=== PATIENT | female | born 1930 | race Caucasian/White ===

== ENCOUNTER 2018-06-06 15:04 | Inpatient (IN) ==
[2018-06-06 17:31] VITALS: BMI 41.1
--- NOTE | 2018-06-06 17:36 | DR.H&P ---
H&P - History & Physical for Day of: H&P Date: 06/06/18 - Chief Complaint Chief Complaint: Abnormal labs - History of Present Illness History of Present Illness: the patient is an 87-year-old female resident of [facility] who has abnormal lab results. The patient was noted to be hypotensive on 06/05/2018 with blood pressure 91/60. patient was given a IV fluid bolus as well as labs drawn. Sodium 125, potassium 6.2, CO2 11, calcium 7 .7, BUN 102, creatinine 3.8, GFR 11.9. Urine 4+ bacteria, negative nitrites. Patient is active and utilizes wheelchair. Patient - Past Medical History Past Medical History: Anemia, Dyslipidemia, GERD, Hypertension, Hypothyroidism Additional Medical History: A FIb, Insomnia, Bullous Pemphigoid - Past Surgical History Surgical History: Unknown - Social History Does patient currently use any type of tobacco product: No Have you used tobacco products in the last 12 months: No Type of Tobacco Use: None Does any household member use tobacco: No Alcohol Use: None Drug Use: None - Medications Home Medications: morphine Adverse Reaction (Verified 06/06/18 17:10) warfarin Adverse Reaction (Verified 06/06/18 17:10) - Review of Systems Constitutional: No Symptoms Reported Eyes: No Symptoms Reported ENT: No Symptoms Reported Respiratory: No Symptoms Reported Cardiovascular: No Symptoms Reported Gastrointestinal: No Symptoms Reported Genitourinary: No Symptoms Reported Musculoskeletal: No Symptoms Reported Skin: No Symptoms Reported Neurological: No Symptoms Reported Oriented: Normal Eyes: Normal Ear: Normal Nose: Normal Throat: Normal Respiratory: Clear Throughout Cardiovascular: Normal : Normal Auscultation: Bowel Sounds: Normal Palpation: Normal Tenderness: Normal Skin: Decreased Turgur Musculoskeletal: Back:Lumbar Psychiatric: Normal Mood Description: Calm Affect: Normal Speech Pattern: Clear - Assessment/Plan (1) Acute kidney failure Status: Acute Plan: LABS, IV HYDRATION, SEPSIS WORK UP (2) Dehydration Status: Acute Plan: LABS, IV HYDRATION, SEPSIS WORK UP (3) Hyperkalemia Status: Acute Plan: MONITOR LABS, IV HYDRATION (4) Hyponatremia Status: Acute Plan: MONITOR LABS, IV HYDRATION, SEPSIS WORK UP - Allergies Allergies/Adverse Reactions: Allergies Allergy/AdvReac Type Severity Reaction Status Date / Time morphine AdvReac Verified 06/06/18 17:10 warfarin AdvReac Verified 06/06/18 17:10
--- NOTE | 2018-06-06 17:49 | RAD ---
HISTORY: Acute renal failure Study: Single view of the chest. Comparison: None. Findings: Cardiomegaly. No focal consolidations, pleural effusions or pneumothorax. Osseous structures demonstrate no acute abnormality. Bilateral hyper expansion with coarsening of interstitial markings. IMPRESSION: 1. No acute cardiopulmonary process. 2. Findings of COPD. Cardiomegaly. Reported By:
[2018-06-06 18:03] LABS: ABG BASE EXCESS -19.5 mmol/L (-2.0-2.0)
[2018-06-06 18:05] LABS: ABG ALLEN TEST POS; ABG HCO3 8.6 mmol/L (22-26)
[2018-06-06 18:16] LABS: BASOPHILS % (AUTO) 0.4 % (0.2-1.0); EOSINOPHILS # (AUTO) 0.1 x10^3/uL (0.0-0.2); EOSINOPHILS % (AUTO) 0.6 % (0.9-2.9); HEMATOCRIT 33.9 % (36.0-47.0); HEMOGLOBIN 10.8 g/dL (12.0-16.0); LYMPHOCYTES # (AUTO) 0.7 X10^3/uL (1.3-2.9); LYMPHOCYTES % (AUTO) 6.7 % (21.0-51.0); MEAN CORPUSCULAR HEMOGLOBIN 28.1 pg (27.0-34.0); MEAN CORPUSCULAR HGB CONC 31.9 g/dL (33.0-35.0); MEAN CORPUSCULAR VOLUME 87.9 fL (80.0-100.0); MEAN PLATELET VOLUME 8.5 fL (7.4-11.0); MONOCYTES # (AUTO) 0.4 x10^3/uL (0.3-0.8); MONOCYTES % (AUTO) 3.7 % (0.0-13.0); NEUTROPHILS # (AUTO) 8.9 x10^3/uL (2.2-4.8); NEUTROPHILS % (AUTO) 88.6 % (42.0-75.0); PLATELET COUNT 272 X10^3/uL (150.0-450.0); RED BLOOD COUNT 3.85 X10^6/uL (3.5-5.4)
[2018-06-06 18:24] LABS: ALBUMIN 2.8 g/dL (3.4-5.0); CALCIUM 8.1 mg/dL (8.5-10.1); COR CA(FOR HYPOALB) 9.1 mg/dL (8.5-10.1); CREATININE 3.95 mg/dL (0.55-1.02); TOTAL PROTEIN 6.6 g/dL (6.4-8.2)
[2018-06-06 18:29] LABS: CARBON DIOXIDE 10.9 mmol/L (21-32)
[2018-06-06 18:38] LABS: BILIRUBIN,URINE NEGATIVE (NEGATIVE); BLOOD/HEMOGLOBIN,URINE 5+ (NEGATIVE); GLUCOSE, URINE NEGATIVE (NEGATIVE); KETONES,URINE NEGATIVE (NEGATIVE); LEUKOCYTE ESTERASE ,URINE 3+ (NEGATIVE); NITRITES,URINE NEGATIVE (NEGATIVE); PROTEIN,URINE 3+ (NEGATIVE); UROBILINOGEN,URINE NORMAL (NORMAL)
[2018-06-06 18:43] LABS: APPEARANCE,URINE CLOUDY (CLEAR); COLOR,URINE DARK YELLOW (YELLOW); RBC,URINE TNTC /HPF (NONE SEEN); SQUAMOUS EPITHELIAL CELL,UR RARE /HPF (NEGATIVE)
[2018-06-06 18:44] LABS: AMORPHOUS SEDIMENT,UR 2+ /HPF (NEGATIVE); BACTERIA,URINE 3+ /HPF (NEGATIVE)
[2018-06-06] MEDS ORDERED: ROCEPHIN VIAL 2 GRAMS IVP ONE (18:52)
[2018-06-06] MEDS ORDERED: TOBRAMYCIN SULFATE 80 MG in NS 100 ML IV 100 ML IV ONE (18:52)
[2018-06-06] MEDS ORDERED: NS 1000 ML 1,000 ML IV ONE ×2 (18:52→19:03)
[2018-06-06 18:54] LABS: CKMB % 5.1 % (<4); TROPONIN I 0.02 ng/mL (0-1.5)
[2018-06-06 18:57] LABS: CREATINE KINASE MB 5.2 ng/mL (0-4.0)
[2018-06-06] MEDS ORDERED: REFLEX: PROVENTIL NEB & PulmiCORT NEB~ NEB SCH (19:00)
[2018-06-06] MEDS ORDERED: HumuLIN R SUBCUT PRN (19:00)
[2018-06-06 19:36] LABS: SERUM ACETONE NEGATIVE (NEGATIVE)
[2018-06-06 19:41] LABS: LACTIC ACID 1.7 mmol/L (0.4-2.0)
[2018-06-06] MEDS: BROVANA IN SCH (20:30)
[2018-06-06] MEDS: PULMICORT NEB TX 0.5 MG NEB SCH (20:31)
[2018-06-06] MEDS: SNACK - Diabetic Appropriate PO SCH (20:57)
[2018-06-06] MEDS ORDERED: ALPHAGAN 0.2% OPHTH SOLN AFFEYE SCH (21:00)
[2018-06-06] MEDS ORDERED: ACCUNEB 1.25 MG NEBULE NEB SCH (21:00)
[2018-06-06] MEDS ORDERED: COLACE CAP 100 MG PO SCH (21:00)
[2018-06-06] MEDS: KAYEXALATE SUSP PO SCH (21:12)
[2018-06-06] MEDS: MIRALAX POWDER (1 DOSE 17 G) PO SCH (21:12)
[2018-06-06] MEDS: MILK OF MAGNESIA PO SCH (21:12)
[2018-06-06] MEDS: COLACE CAP 100 MG PO SCH (21:12)
[2018-06-06] MEDS: REQUIP PO SCH (21:13)
[2018-06-06] MEDS: ELIQUIS PO SCH (21:13)
[2018-06-06] MEDS: PATIENT'S HOME MEDICATION PO SCH (21:13)
[2018-06-06] MEDS: NORCO 5/325 MG TAB PO PRN (21:14)
[2018-06-06] MEDS: ARTIFICIAL TEARS DROPS AFFEYE SCH (21:58)
[2018-06-06] MEDS: ALPHAGAN 0.2% OPHTH SOLN EACHEYE SCH (21:58)
[2018-06-06] MEDS ORDERED: ALPHAGAN P 0.15% OPHTH SOLN EACHEYE SCH (22:00)
[2018-06-06] MEDS ORDERED: BUTT CREAM (COMPOUND) TOP PRN (22:11)
[2018-06-06] MEDS ORDERED: BUTT CREAM (COMPOUND) ONE (22:12)
[2018-06-06] MEDS ORDERED: D50W ABBOJECT SYR IV ONE (22:16)
[2018-06-06] MEDS ORDERED: HumuLIN R SUBCUT ONE (22:18)
[2018-06-06] MEDS ORDERED: D50W ABBOJECT SYR ONE (22:20)
[2018-06-06] MEDS ORDERED: HumuLIN R IV ONE (22:24)
[2018-06-06 23:40] LABS: CKMB % 4.8 % (<4); TROPONIN I 0.02 ng/mL (0-1.5)
[2018-06-06 23:51] LABS: CREATINE KINASE MB 4.5 ng/mL (0-4.0)
[2018-06-07] MEDS: DUONEB 0.5 MG/3 MG NEB SCH ×4 (00:45→17:11)
[2018-06-07] MEDS: NS 1000 ML 1,000 ML IV SCH ×2 (02:42→18:11)
[2018-06-07] MEDS: KAYEXALATE SUSP PO SCH ×3 (02:43→18:42)
[2018-06-07] MEDS: ALPHAGAN 0.2% OPHTH SOLN EACHEYE SCH ×3 (05:54→21:17)
--- NOTE | 2018-06-07 06:41 | RAD ---
HISTORY: Acute renal failure Study: Chest AP portable Comparison: 06/06/2018 Findings: The heart is enlarged. No congestive heart failure is noted. The aorta is calcified. The lungs are free of acute alveolar infiltrates. Mild interstitial lung changes are present, stable. No pleural effusions are identified. The bony thorax is unremarkable with the exception of bilateral chronic rotator cuff disease and bilateral glenohumeral joint degenerative joint disease. IMPRESSION: Moderate cardiomegaly without congestive heart failure No acute infiltrates Mild stable interstitial lung changes Reported By:
[2018-06-07 06:55] LABS: BASOPHILS % (AUTO) 0.5 % (0.2-1.0); EOSINOPHILS # (AUTO) 0.2 x10^3/uL (0.0-0.2); EOSINOPHILS % (AUTO) 2.4 % (0.9-2.9); HEMATOCRIT 31.3 % (36.0-47.0); HEMOGLOBIN 10.1 g/dL (12.0-16.0); LYMPHOCYTES # (AUTO) 1.2 X10^3/uL (1.3-2.9); LYMPHOCYTES % (AUTO) 14.6 % (21.0-51.0); MEAN CORPUSCULAR HEMOGLOBIN 28.1 pg (27.0-34.0); MEAN CORPUSCULAR HGB CONC 32.1 g/dL (33.0-35.0); MEAN CORPUSCULAR VOLUME 87.4 fL (80.0-100.0); MEAN PLATELET VOLUME 8.7 fL (7.4-11.0); MONOCYTES # (AUTO) 0.7 x10^3/uL (0.3-0.8); NEUTROPHILS # (AUTO) 6.2 x10^3/uL (2.2-4.8); NEUTROPHILS % (AUTO) 74.5 % (42.0-75.0); PLATELET COUNT 268 X10^3/uL (150.0-450.0); RED BLOOD COUNT 3.58 X10^6/uL (3.5-5.4); RED CELL DISTRIBUTION WIDTH 14.7 % (11.6-16.5); WHITE BLOOD COUNT 8.3 X10^3/uL (3.6-10.0)
[2018-06-07 07:33] LABS: ALANINE AMINOTRANSFERASE 27 Units/L (12-78); ALBUMIN 2.6 g/dL (3.4-5.0); ALKALINE PHOSPHATASE 120 Units/L (46-116); ASPARTATE AMINO TRANSFERASE 13 Units/L (15-37); BLOOD UREA NITROGEN 114 mg/dL (7-18); CALCIUM 7.7 mg/dL (8.5-10.1); CHLORIDE 97 mmol/L (98-107); CKMB % 5.3 % (<4); COR CA(FOR HYPOALB) 8.8 mg/dL (8.5-10.1); CREATINE KINASE 97 Units/L (26-192); CREATININE 3.76 mg/dL (0.55-1.02); SODIUM 129 mmol/L (136-145); TOTAL PROTEIN 6.2 g/dL (6.4-8.2); TROPONIN I 0.02 ng/mL (0-1.5); eGFR NON BLACK RACES 12 (>60)
[2018-06-07 07:37] LABS: CARBON DIOXIDE 11.5 mmol/L (21-32)
[2018-06-07 07:38] LABS: CREATINE KINASE MB 5.1 ng/mL (0-4.0)
[2018-06-07] MEDS ORDERED: LANTISEPTIC ONE (09:20)
[2018-06-07] MEDS ORDERED: ALLEGRA ONE (09:48)
[2018-06-07] MEDS: ALLEGRA PO SCH (10:15)
[2018-06-07] MEDS: ARTIFICIAL TEARS DROPS AFFEYE SCH ×4 (10:15→20:07)
[2018-06-07] MEDS: COLACE CAP 100 MG PO SCH ×2 (10:16→20:03)
[2018-06-07] MEDS: ELIQUIS PO SCH ×2 (10:17→20:07)
[2018-06-07] MEDS: PATIENT'S HOME MEDICATION PO SCH ×2 (10:18→20:07)
[2018-06-07] MEDS: MILK OF MAGNESIA PO SCH ×2 (10:18→20:03)
[2018-06-07] MEDS: NORCO 5/325 MG TAB PO PRN ×2 (10:19→18:11)
[2018-06-07] MEDS: ROCEPHIN VIAL 1 GRAM IVP SCH (10:19)
[2018-06-07] MEDS: PROTONIX INJ 40 MG VIAL IVP SCH (10:19)
[2018-06-07] MEDS: PREDNISONE TAB 5 MG PO SCH (10:19)
[2018-06-07] MEDS: PULMICORT NEB TX 0.5 MG NEB SCH ×2 (12:00→20:05)
[2018-06-07] MEDS: BROVANA IN SCH ×2 (12:00→20:05)
[2018-06-07] MEDS ORDERED: NS 1/2 1000 ML IV 1,000 ML IV ONE (12:36)
[2018-06-07] MEDS ORDERED: D50W ABBOJECT SYR IV ONE (12:58)
[2018-06-07] MEDS ORDERED: D50W ABBOJECT SYR ONE (12:59)
--- NOTE | 2018-06-07 13:25 | PCM.PROG ---
Progress Note - Progress Note for Day of Date of Exam: 06/07/18 - Subjective Subjective: 87 WF DIRECT ADMIT FROM [facility] WITH ACUTE RENAL FAILURE WITH UTI AND HYPERKALEMIA. PT IS CURRENTLY ON GENTLE IV HYDRATION WITH KAYEXALATE FOR HYPERKALEMIA AND CONTINUOUS CARDIAC MONITORING. PT IS AWAKE AND RESPONSIVE THIS AM, DENIES PAIN. PT BUN CREAT K+ THIS AM. - Past Medical Family Social History Past Med/Fam/Surg Hx: No changes since H&P Allergies: Allergies morphine Adverse Reaction (Verified 06/06/18 17:10) warfarin Adverse Reaction (Verified 06/06/18 17:10) - Review of Systems ROS: No change since H&P - Vital Signs and I&O's Vital Signs: Temperature 97.8 F Pulse Rate [Apical] 55 Pulse Rate 87 Respiratory Rate 13 Blood Pressure [Right Arm] 88/40 Blood Pressure 101/56 O2 Sat by Pulse Oximetry 100 Intake and Output: Intake & Output 06/05/18 06/06/18 06/07/18 06/08/18 11:59 11:59 11:59 11:59 Intake Total 3042 / 3042 Output Total 350 / 350 Balance 2692 / 2692 - Physical Exam Oriented: Normal Eyes: Normal Ear: Normal Nose: Normal Throat: Normal Respiratory: Diminished Cardiovascular: Normal : Normal Auscultation: Bowel Sounds: Normal Tenderness: Normal Skin: Decreased Turgur Musculoskeletal: Back:Lumbar Psychiatric: Normal Mood Description: Calm Affect: Normal Speech Pattern: Clear - Laboratory and Diagnostics Result Diagrams: 06/07/18 06:35 06/07/18 06:35 Labs: 06/06/18 18:25 Urine,Catheterized Urine Culture - Preliminary Laboratory WBC 8.3 X10^3/uL (3.6-10.0) 06/07/18 06:35 RBC 3.58 X10^6/uL (3.5-5.4) 06/07/18 06:35 Hgb 10.1 g/dL (12.0-16.0) L 06/07/18 06:35 Hct 31.3 % (36.0-47.0) L 06/07/18 06:35 MCV 87.4 fL (80.0-100.0) 06/07/18 06:35 MCH 28.1 pg (27.0-34.0) 06/07/18 06:35 MCHC 32.1 g/dL (33.0-35.0) L 06/07/18 06:35 RDW 14.7 % (11.6-16.5) 06/07/18 06:35 Plt Count 268 X10^3/uL (150.0-450.0) 06/07/18 06:35 MPV 8.7 fL (7.4-11.0) 06/07/18 06:35 Neut % (Auto) 74.5 % (42.0-75.0) 06/07/18 06:35 Lymph % (Auto) 14.6 % (21.0-51.0) L 06/07/18 06:35 [place] % (Auto) 8.0 % (0.0-13.0) 06/07/18 06:35 Eos % (Auto) 2.4 % (0.9-2.9) 06/07/18 06:35 Baso % (Auto) 0.5 % (0.2-1.0) 06/07/18 06:35 Neut # (Auto) 6.2 x10^3/uL (2.2-4.8) H 06/07/18 06:35 Lymph # (Auto) 1.2 X10^3/uL (1.3-2.9) L 06/07/18 06:35 [place] # (Auto) 0.7 x10^3/uL (0.3-0.8) 06/07/18 06:35 Eos # (Auto) 0.2 x10^3/uL (0.0-0.2) 06/07/18 06:35 Baso # (Auto) 0.0 X10^3/uL (0.0-0.1) 06/07/18 06:35 Absolute Nucleated RBC 0.0 /100WBC 06/07/18 06:35 Sample Site Rrad 06/06/18 17:45 ABG pH 7.110 (7.35-7.45) L* 06/06/18 17:45 ABG pCO2 27.0 mmHg (35.0-45.0) L 06/06/18 17:45 ABG pO2 116.0 mmHg (80.0-100.0) H 06/06/18 17:45 ABG HCO3 8.6 mmol/L (22-26) L* 06/06/18 17:45 ABG O2 Saturation 97.0 % (90-100) 06/06/18 17:45 ABG Base Excess -19.5 mmol/L (-2.0-2.0) L 06/06/18 17:45 Marlon Test Pos 06/06/18 17:45 A-a Gradient 50.0 mmHg 06/06/18 17:45 FiO2 28.0 06/06/18 17:45 Blood Gas Comments Pt velia well elj 06/06/18 17:45 Sodium 129 mmol/L (136-145) L 06/07/18 06:35 Corrected Sodium TNP 06/07/18 06:35 Potassium 6.3 mmol/L (3.5-5.1) H* 06/07/18 06:35 Chloride 97 mmol/L (98-107) L 06/07/18 06:35 Carbon Dioxide 11.5 mmol/L (21-32) L* 06/07/18 06:35 BUN 114 mg/dL (7-18) H 06/07/18 06:35 Creatinine 3.76 mg/dL (0.55-1.02) H 06/07/18 06:35 Est GFR (MDRD) Af Amer 15 (>60) L 06/07/18 06:35 Est GFR (MDRD) Non-Af 12 (>60) L 06/07/18 06:35 Glucose 69 mg/dL (65-99) 06/07/18 06:35 Lactic Acid 1.7 mmol/L (0.4-2.0) 06/06/18 19:10 Calcium 7.7 mg/dL (8.5-10.1) L 06/07/18 06:35 Corrected Calcium 8.8 mg/dL (8.5-10.1) 06/07/18 06:35 Total Bilirubin 0.30 mg/dL (0.2-1.0) 06/07/18 06:35 AST 13 Units/L (15-37) L 06/07/18 06:35 ALT 27 Units/L (12-78) 06/07/18 06:35 Alkaline Phosphatase 120 Units/L (46-116) H 06/07/18 06:35 Creatine Kinase 97 Units/L (26-192) 06/07/18 06:35 CK-MB (CK-2) 5.1 ng/mL (0-4.0) H* 06/07/18 06:35 CK/CKMB % Calc 5.3 % (<4) 06/07/18 06:35 Troponin I 0.02 ng/mL (0-1.5) 06/07/18 06:35 Total Protein 6.2 g/dL (6.4-8.2) L 06/07/18 06:35 Albumin 2.6 g/dL (3.4-5.0) L 06/07/18 06:35 Globulin 3.6 g/dL (2.5-4.5) 06/07/18 06:35 Albumin/Globulin Ratio 0.7 Ratio (1.1-2.1) L 06/07/18 06:35 Specimen Type Catherized urine 06/06/18 18:25 Urine Color Dark yellow (YELLOW) 06/06/18 18:25 Urine Appearance Cloudy (CLEAR) 06/06/18 18:25 Urine pH 5.0 (5.0 - 8.0) 06/06/18 18:25 Ur Specific [place] 1.020 (1.000-1.030) 06/06/18 18:25 Urine Protein 3+ (NEGATIVE) 06/06/18 18:25 Urine Glucose (UA) Negative (NEGATIVE) 06/06/18 18:25 Urine Ketones Negative (NEGATIVE) 06/06/18 18:25 Urine Occult Blood 5+ (NEGATIVE) 06/06/18 18:25 Urine Nitrite Negative (NEGATIVE) 06/06/18 18:25 Urine Bilirubin Negative (NEGATIVE) 06/06/18 18:25 Urine Urobilinogen Normal (NORMAL) 06/06/18 18:25 Ur Leukocyte Esterase 3+ (NEGATIVE) 06/06/18 18:25 Urine RBC Tntc /HPF (NONE SEEN) 06/06/18 18:25 Urine WBC Tntc /HPF (NONE SEEN) 06/06/18 18:25 Ur Squamous Epith Cells Rare /HPF (NEGATIVE) 06/06/18 18:25 Amorphous Sediment 2+ /HPF (NEGATIVE) 06/06/18 18:25 Urine Bacteria 3+ /HPF (NEGATIVE) 06/06/18 18:25 Ur Culture Indicated? Yes/culture set up 06/06/18 18:25 Acetone, Semi-Quant Negative (NEGATIVE) 06/06/18 19:10 - Plan (1) Acute kidney failure Status: Acute Plan: LABS, IV HYDRATION, BLOOD AND URINE CULTURE ORDERED ON ADMISSION. [place] WITH STRICT I & OS. GENTLE IV HYDRATION. CONTINUOUS CARDIAC MONITORING, SERIAL CE. BP CONTROL, IV ABTX. SUPPLEMENTAL O2 (2) UTI (urinary tract infection) Status: Acute (3) Dehydration Status: Acute Plan: LABS, IV HYDRATION, SEPSIS WORK UP (4) Hyperkalemia Status: Acute Plan: MONITOR LABS, IV HYDRATION (5) Hyponatremia Status: Acute Plan: MONITOR LABS, IV HYDRATION, SEPSIS WORK UP
[2018-06-07] MEDS ORDERED: NS 1000 ML 1,000 ML IV ONE (14:00)
[2018-06-07] MEDS ORDERED: NS 1/2 1000 ML IV 1,000 ML IV SCH (14:00)
[2018-06-07] MEDS ORDERED: LASIX IVP ONE (14:01)
[2018-06-07 14:26] LABS: CALCIUM 7.3 mg/dL (8.5-10.1); CREATININE 3.85 mg/dL (0.55-1.02)
[2018-06-07 14:29] LABS: CARBON DIOXIDE 11.9 mmol/L (21-32)
--- NOTE | 2018-06-07 15:38 | US ---
History: Acute renal failure Study: Ultrasound of the kidneys Comparison: None Findings: The right kidney measures 9.26 x 5.17 x 4.81 cm with cortical thickness of 1.41 cm. The left kidney measures 10.06 by 5.68 x 5.1 cm with cortical thickness of 1.96 cm. There is no hydronephrosis or mass. There is normal echogenicity of renal cortex. The urinary bladder is decompressed by a James balloon catheter. Impression: Negative Reported By:
[2018-06-07] MEDS: SYNTHROID 75 mcg TAB PO SCH (16:28)
[2018-06-07] MEDS: SNACK - Diabetic Appropriate PO SCH (20:03)
[2018-06-07] MEDS: MIRALAX POWDER (1 DOSE 17 G) PO SCH (20:04)
[2018-06-07] MEDS: REQUIP PO SCH (20:08)
[2018-06-08] MEDS ORDERED: GLUTOSE 15 GEL ORAL PO ONE ×2 (05:44→05:46)
[2018-06-08] MEDS: ALPHAGAN 0.2% OPHTH SOLN EACHEYE SCH ×3 (05:48→21:26)
[2018-06-08] MEDS: NS 1000 ML 1,000 ML IV SCH ×3 (05:49→18:58)
[2018-06-08] MEDS: NORCO 5/325 MG TAB PO PRN ×3 (05:50→20:15)
[2018-06-08 06:41] LABS: BASOPHILS % (AUTO) 0.7 % (0.2-1.0); EOSINOPHILS # (AUTO) 0.2 x10^3/uL (0.0-0.2); EOSINOPHILS % (AUTO) 3.4 % (0.9-2.9); HEMATOCRIT 26.5 % (36.0-47.0); HEMOGLOBIN 8.8 g/dL (12.0-16.0); LYMPHOCYTES # (AUTO) 1.1 X10^3/uL (1.3-2.9); LYMPHOCYTES % (AUTO) 17.1 % (21.0-51.0); MEAN CORPUSCULAR HEMOGLOBIN 28.8 pg (27.0-34.0); MEAN CORPUSCULAR HGB CONC 33.4 g/dL (33.0-35.0); MEAN CORPUSCULAR VOLUME 86.1 fL (80.0-100.0); MEAN PLATELET VOLUME 8.7 fL (7.4-11.0); MONOCYTES # (AUTO) 0.7 x10^3/uL (0.3-0.8); MONOCYTES % (AUTO) 10.3 % (0.0-13.0); NEUTROPHILS # (AUTO) 4.3 x10^3/uL (2.2-4.8); NEUTROPHILS % (AUTO) 68.5 % (42.0-75.0); PLATELET COUNT 229 X10^3/uL (150.0-450.0); RED BLOOD COUNT 3.07 X10^6/uL (3.5-5.4); RED CELL DISTRIBUTION WIDTH 14.4 % (11.6-16.5); WHITE BLOOD COUNT 6.3 X10^3/uL (3.6-10.0)
[2018-06-08] MEDS ORDERED: D50W ABBOJECT SYR ONE (07:03)
[2018-06-08 07:08] LABS: ALANINE AMINOTRANSFERASE 23 Units/L (12-78); ALBUMIN 2.3 g/dL (3.4-5.0); ALKALINE PHOSPHATASE 97 Units/L (46-116); ASPARTATE AMINO TRANSFERASE 12 Units/L (15-37); BLOOD UREA NITROGEN 101 mg/dL (7-18); CALCIUM 7.1 mg/dL (8.5-10.1); CHLORIDE 100 mmol/L (98-107); COR CA(FOR HYPOALB) 8.5 mg/dL (8.5-10.1); CREATININE 3.21 mg/dL (0.55-1.02); SODIUM 131 mmol/L (136-145); TOTAL PROTEIN 5.4 g/dL (6.4-8.2); eGFR NON BLACK RACES 15 (>60)
[2018-06-08] MEDS ORDERED: D50W ABBOJECT SYR IV ONE (07:08)
[2018-06-08 07:19] LABS: CARBON DIOXIDE 10.7 mmol/L (21-32)
[2018-06-08] MEDS ORDERED: ALLEGRA ONE (08:16)
[2018-06-08] MEDS: ELIQUIS PO SCH ×2 (09:03→20:14)
[2018-06-08] MEDS: ROCEPHIN VIAL 1 GRAM IVP SCH (09:03)
[2018-06-08] MEDS: PROTONIX INJ 40 MG VIAL IVP SCH (09:03)
[2018-06-08] MEDS: ALLEGRA PO SCH (09:04)
[2018-06-08] MEDS: PREDNISONE TAB 5 MG PO SCH (09:04)
[2018-06-08] MEDS: PATIENT'S HOME MEDICATION PO SCH ×2 (09:04→20:14)
[2018-06-08] MEDS: ARTIFICIAL TEARS DROPS AFFEYE SCH ×4 (09:11→20:14)
[2018-06-08] MEDS: BROVANA IN SCH ×2 (11:54→20:44)
[2018-06-08] MEDS: PULMICORT NEB TX 0.5 MG NEB SCH ×2 (11:54→20:44)
[2018-06-08] MEDS: DUONEB 0.5 MG/3 MG NEB SCH ×2 (11:54→17:28)
[2018-06-08] MEDS: COLACE CAP 100 MG PO SCH ×2 (15:32→20:13)
[2018-06-08] MEDS: MILK OF MAGNESIA PO SCH ×2 (15:32→20:08)
[2018-06-08] MEDS: SYNTHROID 75 mcg TAB PO SCH (17:19)
--- NOTE | 2018-06-08 18:27 | PCM.PROG ---
Progress Note - Progress Note for Day of Date of Exam: 06/08/18 - Subjective Subjective: 87 WF DIRECT ADMIT FROM [facility] WITH ACUTE RENAL FAILURE WITH UTI AND HYPERKALEMIA. PT IS CURRENTLY ON GENTLE IV HYDRATION WITH KAYEXALATE FOR HYPERKALEMIA AND CONTINUOUS CARDIAC MONITORING. PT IS AWAKE AND RESPONSIVE THIS AM, DENIES PAIN. PT BUN CREAT K+ THIS AM. - Past Medical Family Social History Past Med/Fam/Surg Hx: No changes since H&P Allergies: Allergies morphine Adverse Reaction (Verified 06/06/18 17:10) warfarin Adverse Reaction (Verified 06/06/18 17:10) - Review of Systems ROS: No change since H&P - Vital Signs and I&O's Vital Signs: Temperature 99.8 F Pulse Rate [Apical] 55 Pulse Rate 95 Respiratory Rate 27 Blood Pressure [Right Arm] 88/40 Blood Pressure 110/62 O2 Sat by Pulse Oximetry 100 Intake and Output: Intake & Output 06/06/18 06/07/18 06/08/18 06/09/18 11:59 11:59 11:59 11:59 Intake Total 3042 / 3042 5322 / 5322 1062 / 1062 Output Total 350 / 350 1900 / 1900 Balance 2692 / 2692 3422 / 3422 1062 / 1062 - Physical Exam Oriented: Normal Eyes: Normal Ear: Normal Nose: Normal Throat: Normal Respiratory: Diminished Cardiovascular: Normal : Normal Auscultation: Bowel Sounds: Normal Tenderness: Normal Skin: Decreased Turgur Musculoskeletal: Back:Lumbar Psychiatric: Normal Mood Description: Calm Affect: Normal Speech Pattern: Clear, Appropriate - Laboratory and Diagnostics Result Diagrams: 06/08/18 05:38 06/08/18 05:38 Labs: 06/08/18 10:15 Sputum - Expectorated Sputum - Final 06/06/18 18:00 Blood Blood Culture - Preliminary 06/06/18 17:56 Blood Blood Culture - Preliminary 06/06/18 18:25 Urine,Catheterized Urine Culture - Final Escherichia Coli Laboratory WBC 6.3 X10^3/uL (3.6-10.0) 06/08/18 05:38 RBC 3.07 X10^6/uL (3.5-5.4) L 06/08/18 05:38 Hgb 8.8 g/dL (12.0-16.0) L 06/08/18 05:38 Hct 26.5 % (36.0-47.0) L 06/08/18 05:38 MCV 86.1 fL (80.0-100.0) 06/08/18 05:38 MCH 28.8 pg (27.0-34.0) 06/08/18 05:38 MCHC 33.4 g/dL (33.0-35.0) 06/08/18 05:38 RDW 14.4 % (11.6-16.5) 06/08/18 05:38 Plt Count 229 X10^3/uL (150.0-450.0) 06/08/18 05:38 MPV 8.7 fL (7.4-11.0) 06/08/18 05:38 Neut % (Auto) 68.5 % (42.0-75.0) 06/08/18 05:38 Lymph % (Auto) 17.1 % (21.0-51.0) L 06/08/18 05:38 [place] % (Auto) 10.3 % (0.0-13.0) 06/08/18 05:38 Eos % (Auto) 3.4 % (0.9-2.9) H 06/08/18 05:38 Baso % (Auto) 0.7 % (0.2-1.0) 06/08/18 05:38 Neut # (Auto) 4.3 x10^3/uL (2.2-4.8) 06/08/18 05:38 Lymph # (Auto) 1.1 X10^3/uL (1.3-2.9) L 06/08/18 05:38 [place] # (Auto) 0.7 x10^3/uL (0.3-0.8) 06/08/18 05:38 Eos # (Auto) 0.2 x10^3/uL (0.0-0.2) 06/08/18 05:38 Baso # (Auto) 0.0 X10^3/uL (0.0-0.1) 06/08/18 05:38 Absolute Nucleated RBC 0.1 /100WBC 06/08/18 05:38 Sample Site Rrad 06/06/18 17:45 ABG pH 7.110 (7.35-7.45) L* 06/06/18 17:45 ABG pCO2 27.0 mmHg (35.0-45.0) L 06/06/18 17:45 ABG pO2 116.0 mmHg (80.0-100.0) H 06/06/18 17:45 ABG HCO3 8.6 mmol/L (22-26) L* 06/06/18 17:45 ABG O2 Saturation 97.0 % (90-100) 06/06/18 17:45 ABG Base Excess -19.5 mmol/L (-2.0-2.0) L 06/06/18 17:45 Marlon Test Pos 06/06/18 17:45 A-a Gradient 50.0 mmHg 06/06/18 17:45 FiO2 28.0 06/06/18 17:45 Blood Gas Comments Pt velia well elj 06/06/18 17:45 Sodium 131 mmol/L (136-145) L 06/08/18 05:38 Corrected Sodium TNP 06/08/18 05:38 Potassium 4.6 mmol/L (3.5-5.1) 06/08/18 05:38 Chloride 100 mmol/L (98-107) 06/08/18 05:38 Carbon Dioxide 10.7 mmol/L (21-32) L* 06/08/18 05:38 BUN 101 mg/dL (7-18) H 06/08/18 05:38 Creatinine 3.21 mg/dL (0.55-1.02) H 06/08/18 05:38 Est GFR (MDRD) Af Amer 18 (>60) L 06/08/18 05:38 Est GFR (MDRD) Non-Af 15 (>60) L 06/08/18 05:38 Glucose 67 mg/dL (65-99) 06/08/18 05:38 POC Glucose (mg/dL) 115 mg/dL (65-99) H 06/08/18 11:24 Lactic Acid 1.7 mmol/L (0.4-2.0) 06/06/18 19:10 Calcium 7.1 mg/dL (8.5-10.1) L 06/08/18 05:38 Corrected Calcium 8.5 mg/dL (8.5-10.1) 06/08/18 05:38 Total Bilirubin 0.20 mg/dL (0.2-1.0) 06/08/18 05:38 AST 12 Units/L (15-37) L 06/08/18 05:38 ALT 23 Units/L (12-78) 06/08/18 05:38 Alkaline Phosphatase 97 Units/L (46-116) 06/08/18 05:38 Creatine Kinase 97 Units/L (26-192) 06/07/18 06:35 CK-MB (CK-2) 5.1 ng/mL (0-4.0) H* 06/07/18 06:35 CK/CKMB % Calc 5.3 % (<4) 06/07/18 06:35 Troponin I 0.02 ng/mL (0-1.5) 06/07/18 06:35 Total Protein 5.4 g/dL (6.4-8.2) L 06/08/18 05:38 Albumin 2.3 g/dL (3.4-5.0) L 06/08/18 05:38 Globulin 3.1 g/dL (2.5-4.5) 06/08/18 05:38 Albumin/Globulin Ratio 0.7 Ratio (1.1-2.1) L 06/08/18 05:38 Specimen Type Catherized urine 06/06/18 18:25 Urine Color Dark yellow (YELLOW) 06/06/18 18:25 Urine Appearance Cloudy (CLEAR) 06/06/18 18:25 Urine pH 5.0 (5.0 - 8.0) 06/06/18 18:25 Ur Specific [place] 1.020 (1.000-1.030) 06/06/18 18:25 Urine Protein 3+ (NEGATIVE) 06/06/18 18:25 Urine Glucose (UA) Negative (NEGATIVE) 06/06/18 18:25 Urine Ketones Negative (NEGATIVE) 06/06/18 18:25 Urine Occult Blood 5+ (NEGATIVE) 06/06/18 18:25 Urine Nitrite Negative (NEGATIVE) 06/06/18 18:25 Urine Bilirubin Negative (NEGATIVE) 06/06/18 18:25 Urine Urobilinogen Normal (NORMAL) 06/06/18 18:25 Ur Leukocyte Esterase 3+ (NEGATIVE) 06/06/18 18:25 Urine RBC Tntc /HPF (NONE SEEN) 06/06/18 18:25 Urine WBC Tntc /HPF (NONE SEEN) 06/06/18 18:25 Ur Squamous Epith Cells Rare /HPF (NEGATIVE) 06/06/18 18:25 Amorphous Sediment 2+ /HPF (NEGATIVE) 06/06/18 18:25 Urine Bacteria 3+ /HPF (NEGATIVE) 06/06/18 18:25 Ur Culture Indicated? Yes/culture set up 06/06/18 18:25 Acetone, Semi-Quant Negative (NEGATIVE) 06/06/18 19:10 - Plan (1) Acute kidney failure Status: Acute Plan: LABS, IV HYDRATION, BLOOD AND URINE CULTURE ORDERED ON ADMISSION. [place] WITH STRICT I & OS. GENTLE IV HYDRATION. CONTINUOUS CARDIAC MONITORING, SERIAL CE. BP CONTROL, IV ABTX. SUPPLEMENTAL O2 (2) UTI (urinary tract infection) Status: Acute (3) Dehydration Status: Acute Plan: LABS, IV HYDRATION, SEPSIS WORK UP (4) Hyperkalemia Status: Acute Plan: MONITOR LABS, IV HYDRATION. 4.6 K+ (5) Hyponatremia Status: Acute Plan: MONITOR LABS, IV HYDRATION, SEPSIS WORK UP
[2018-06-08] MEDS: SNACK - Diabetic Appropriate PO SCH (20:06)
[2018-06-08] MEDS: REQUIP PO SCH (20:07)
[2018-06-08] MEDS: MIRALAX POWDER (1 DOSE 17 G) PO SCH (20:09)
[2018-06-09] MEDS: DUONEB 0.5 MG/3 MG NEB SCH ×6 (01:29→16:45)
[2018-06-09] MEDS: NORCO 5/325 MG TAB PO PRN ×4 (02:03→20:00)
[2018-06-09 05:16] LABS: ABG BASE EXCESS -12.5 mmol/L (-2.0-2.0)
[2018-06-09 05:18] LABS: ABG HCO3 12.5 mmol/L (22-26)
[2018-06-09] MEDS: ALPHAGAN 0.2% OPHTH SOLN EACHEYE SCH ×3 (05:27→21:25)
[2018-06-09 06:31] LABS: BASOPHILS % (AUTO) 0.5 % (0.2-1.0); EOSINOPHILS # (AUTO) 0.3 x10^3/uL (0.0-0.2); EOSINOPHILS % (AUTO) 4.8 % (0.9-2.9); HEMATOCRIT 26.4 % (36.0-47.0); HEMOGLOBIN 8.8 g/dL (12.0-16.0); LYMPHOCYTES # (AUTO) 1.2 X10^3/uL (1.3-2.9); LYMPHOCYTES % (AUTO) 22.7 % (21.0-51.0); MEAN CORPUSCULAR HEMOGLOBIN 28.6 pg (27.0-34.0); MEAN CORPUSCULAR HGB CONC 33.4 g/dL (33.0-35.0); MEAN CORPUSCULAR VOLUME 85.4 fL (80.0-100.0); MEAN PLATELET VOLUME 8.3 fL (7.4-11.0); MONOCYTES # (AUTO) 0.7 x10^3/uL (0.3-0.8); MONOCYTES % (AUTO) 12.4 % (0.0-13.0); NEUTROPHILS # (AUTO) 3.3 x10^3/uL (2.2-4.8); NEUTROPHILS % (AUTO) 59.6 % (42.0-75.0); PLATELET COUNT 263 X10^3/uL (150.0-450.0); RED BLOOD COUNT 3.09 X10^6/uL (3.5-5.4); RED CELL DISTRIBUTION WIDTH 14.8 % (11.6-16.5); WHITE BLOOD COUNT 5.5 X10^3/uL (3.6-10.0)
[2018-06-09 06:40] LABS: ALANINE AMINOTRANSFERASE 22 Units/L (12-78); ALBUMIN 2.2 g/dL (3.4-5.0); ALKALINE PHOSPHATASE 90 Units/L (46-116); ASPARTATE AMINO TRANSFERASE 10 Units/L (15-37); BLOOD UREA NITROGEN 85 mg/dL (7-18); CALCIUM 7.2 mg/dL (8.5-10.1); CHLORIDE 104 mmol/L (98-107); COR CA(FOR HYPOALB) 8.6 mg/dL (8.5-10.1); SODIUM 135 mmol/L (136-145); TOTAL PROTEIN 5.3 g/dL (6.4-8.2); eGFR NON BLACK RACES 19 (>60)
[2018-06-09 06:53] LABS: CARBON DIOXIDE 12.7 mmol/L (21-32)
[2018-06-09] MEDS: NS 1000 ML 1,000 ML IV SCH ×2 (08:19→17:59)
[2018-06-09] MEDS ORDERED: ALLEGRA ONE (08:34)
[2018-06-09] MEDS: PROTONIX INJ 40 MG VIAL IVP SCH (08:47)
[2018-06-09] MEDS: ROCEPHIN VIAL 1 GRAM IVP SCH (08:47)
[2018-06-09] MEDS: MILK OF MAGNESIA PO SCH ×2 (08:47→21:22)
[2018-06-09] MEDS: ALLEGRA PO SCH (08:48)
[2018-06-09] MEDS: ELIQUIS PO SCH ×2 (08:48→21:17)
[2018-06-09] MEDS: PREDNISONE TAB 5 MG PO SCH (08:48)
[2018-06-09] MEDS: PATIENT'S HOME MEDICATION PO SCH ×2 (08:49→21:21)
[2018-06-09] MEDS: BROVANA IN SCH ×2 (08:49→20:08)
[2018-06-09] MEDS: PULMICORT NEB TX 0.5 MG NEB SCH ×2 (08:49→20:08)
[2018-06-09] MEDS: COLACE CAP 100 MG PO SCH ×2 (08:52→21:15)
[2018-06-09] MEDS: ARTIFICIAL TEARS DROPS AFFEYE SCH ×4 (08:54→21:23)
--- NOTE | 2018-06-09 10:14 | RAD ---
History: Congestion Study: Portable AP chest Comparison: June 07 Findings: There is mild cardiomegaly overall improved. There is improved vascular congestion. There is chronic interstitial lung disease. There are osteophytes about the glenohumeral joints. There is no edema or effusion. Impression: Chronic mild cardiomegaly, no definite acute disease demonstrated Reported By:
[2018-06-09] MEDS: SYNTHROID 75 mcg TAB PO SCH (16:47)
--- NOTE | 2018-06-09 17:57 | PCM.PROG ---
Progress Note - Progress Note for Day of Date of Exam: 06/09/18 - Subjective Subjective: 87 WF DIRECT ADMIT FROM [facility] WITH ACUTE RENAL FAILURE WITH UTI AND HYPERKALEMIA. PT IS CURRENTLY ON GENTLE IV HYDRATION WITH K + 4.2 AND CONTINUOUS CARDIAC MONITORING. PT IS AWAKE AND RESPONSIVE THIS AM, DENIES PAIN. PT BUN 85 CREAT 2.60 THIS AM. URINE CULTURE +ECOLI SENSATIVE TO ROCEPHIN. PT CO LOWER LEG PAIN AND CRAMPS, ON REQUIP LOW DOSE OF PERCOCET PRN FOR PAIN - Past Medical Family Social History Past Med/Fam/Surg Hx: No changes since H&P Allergies: Allergies morphine Adverse Reaction (Verified 06/06/18 17:10) warfarin Adverse Reaction (Verified 06/06/18 17:10) - Review of Systems ROS: No change since H&P - Vital Signs and I&O's Vital Signs: Temperature 98.5 F Pulse Rate [Apical] 55 Pulse Rate 100 Respiratory Rate 20 Blood Pressure [Right Arm] 88/40 Blood Pressure 109/65 O2 Sat by Pulse Oximetry 100 Intake and Output: Intake & Output 06/07/18 06/08/18 06/09/18 06/10/18 11:59 11:59 11:59 11:59 Intake Total 3042 / 3042 5322 / 5322 4229 / 4229 1674 / 1674 Output Total 350 / 350 1900 / 1900 2100 / 2100 1800 / 1800 Balance 2692 / 2692 3422 / 3422 2129 / 212 -126 / -126 - Physical Exam Oriented: Normal Eyes: Normal Ear: Normal Nose: Normal Throat: Normal Respiratory: Diminished Cardiovascular: Normal, Edema : Normal Auscultation: Bowel Sounds: Normal Tenderness: Normal Skin: Decreased Turgur Musculoskeletal: Back:Lumbar Psychiatric: Normal Mood Description: Calm Affect: Normal Speech Pattern: Clear, Appropriate - Laboratory and Diagnostics Result Diagrams: 06/09/18 05:53 06/09/18 05:53 Labs: 06/08/18 10:15 Sputum - Expectorated Sputum Sputum Culture - Preliminary 06/08/18 10:15 Sputum - Expectorated Sputum - Final 06/06/18 18:00 Blood Blood Culture - Preliminary 06/06/18 17:56 Blood Blood Culture - Preliminary 06/06/18 18:25 Urine,Catheterized Urine Culture - Final Escherichia Coli Laboratory WBC 5.5 X10^3/uL (3.6-10.0) 06/09/18 05:53 RBC 3.09 X10^6/uL (3.5-5.4) L 06/09/18 05:53 Hgb 8.8 g/dL (12.0-16.0) L 06/09/18 05:53 Hct 26.4 % (36.0-47.0) L 06/09/18 05:53 MCV 85.4 fL (80.0-100.0) 06/09/18 05:53 MCH 28.6 pg (27.0-34.0) 06/09/18 05:53 MCHC 33.4 g/dL (33.0-35.0) 06/09/18 05:53 RDW 14.8 % (11.6-16.5) 06/09/18 05:53 Plt Count 263 X10^3/uL (150.0-450.0) 06/09/18 05:53 MPV 8.3 fL (7.4-11.0) 06/09/18 05:53 Neut % (Auto) 59.6 % (42.0-75.0) 06/09/18 05:53 Lymph % (Auto) 22.7 % (21.0-51.0) 06/09/18 05:53 [place] % (Auto) 12.4 % (0.0-13.0) 06/09/18 05:53 Eos % (Auto) 4.8 % (0.9-2.9) H 06/09/18 05:53 Baso % (Auto) 0.5 % (0.2-1.0) 06/09/18 05:53 Neut # (Auto) 3.3 x10^3/uL (2.2-4.8) 06/09/18 05:53 Lymph # (Auto) 1.2 X10^3/uL (1.3-2.9) L 06/09/18 05:53 [place] # (Auto) 0.7 x10^3/uL (0.3-0.8) 06/09/18 05:53 Eos # (Auto) 0.3 x10^3/uL (0.0-0.2) H 06/09/18 05:53 Baso # (Auto) 0.0 X10^3/uL (0.0-0.1) 06/09/18 05:53 Absolute Nucleated RBC 0.1 /100WBC 06/09/18 05:53 Sample Site Lba 06/09/18 05:06 ABG pH 7.290 (7.35-7.45) L 06/09/18 05:06 ABG pCO2 26.0 mmHg (35.0-45.0) L 06/09/18 05:06 ABG pO2 102.0 mmHg (80.0-100.0) H 06/09/18 05:06 ABG HCO3 12.5 mmol/L (22-26) L* 06/09/18 05:06 ABG O2 Saturation 97.0 % (90-100) 06/09/18 05:06 ABG Base Excess -12.5 mmol/L (-2.0-2.0) L 06/09/18 05:06 Marlon Test Na 06/09/18 05:06 A-a Gradient 15.0 mmHg 06/09/18 05:06 FiO2 21.0 06/09/18 05:06 Blood Gas Comments [place] abg well-mtf 06/09/18 05:06 Sodium 135 mmol/L (136-145) L 06/09/18 05:53 Corrected Sodium TNP 06/09/18 05:53 Potassium 4.2 mmol/L (3.5-5.1) 06/09/18 05:53 Chloride 104 mmol/L (98-107) 06/09/18 05:53 Carbon Dioxide 12.7 mmol/L (21-32) L* 06/09/18 05:53 BUN 85 mg/dL (7-18) H 06/09/18 05:53 Creatinine 2.60 mg/dL (0.55-1.02) H 06/09/18 05:53 Est GFR (MDRD) Af Amer 22 (>60) L 06/09/18 05:53 Est GFR (MDRD) Non-Af 19 (>60) L 06/09/18 05:53 Glucose 88 mg/dL (65-99) 06/09/18 05:53 POC Glucose (mg/dL) 185 mg/dL (65-99) H 06/09/18 16:25 Lactic Acid 1.7 mmol/L (0.4-2.0) 06/06/18 19:10 Calcium 7.2 mg/dL (8.5-10.1) L 06/09/18 05:53 Corrected Calcium 8.6 mg/dL (8.5-10.1) 06/09/18 05:53 Total Bilirubin 0.30 mg/dL (0.2-1.0) 06/09/18 05:53 AST 10 Units/L (15-37) L 06/09/18 05:53 ALT 22 Units/L (12-78) 06/09/18 05:53 Alkaline Phosphatase 90 Units/L (46-116) 06/09/18 05:53 Creatine Kinase 97 Units/L (26-192) 06/07/18 06:35 CK-MB (CK-2) 5.1 ng/mL (0-4.0) H* 06/07/18 06:35 CK/CKMB % Calc 5.3 % (<4) 06/07/18 06:35 Troponin I 0.02 ng/mL (0-1.5) 06/07/18 06:35 Total Protein 5.3 g/dL (6.4-8.2) L 06/09/18 05:53 Albumin 2.2 g/dL (3.4-5.0) L 06/09/18 05:53 Globulin 3.1 g/dL (2.5-4.5) 06/09/18 05:53 Albumin/Globulin Ratio 0.7 Ratio (1.1-2.1) L 06/09/18 05:53 Specimen Type Catherized urine 06/06/18 18:25 Urine Color Dark yellow (YELLOW) 06/06/18 18:25 Urine Appearance Cloudy (CLEAR) 06/06/18 18:25 Urine pH 5.0 (5.0 - 8.0) 06/06/18 18:25 Ur Specific [place] 1.020 (1.000-1.030) 06/06/18 18:25 Urine Protein 3+ (NEGATIVE) 06/06/18 18:25 Urine Glucose (UA) Negative (NEGATIVE) 06/06/18 18:25 Urine Ketones Negative (NEGATIVE) 06/06/18 18:25 Urine Occult Blood 5+ (NEGATIVE) 06/06/18 18:25 Urine Nitrite Negative (NEGATIVE) 06/06/18 18:25 Urine Bilirubin Negative (NEGATIVE) 06/06/18 18:25 Urine Urobilinogen Normal (NORMAL) 06/06/18 18:25 Ur Leukocyte Esterase 3+ (NEGATIVE) 06/06/18 18:25 Urine RBC Tntc /HPF (NONE SEEN) 06/06/18 18:25 Urine WBC Tntc /HPF (NONE SEEN) 06/06/18 18:25 Ur Squamous Epith Cells Rare /HPF (NEGATIVE) 06/06/18 18:25 Amorphous Sediment 2+ /HPF (NEGATIVE) 06/06/18 18:25 Urine Bacteria 3+ /HPF (NEGATIVE) 06/06/18 18:25 Ur Culture Indicated? Yes/culture set up 06/06/18 18:25 Acetone, Semi-Quant Negative (NEGATIVE) 06/06/18 19:10 - Plan (1) Acute kidney failure Status: Acute Plan: LABS, IV HYDRATION, BLOOD AND URINE CULTURE ORDERED ON ADMISSION. [place] WITH STRICT I & OS. GENTLE IV HYDRATION. CONTINUOUS CARDIAC MONITORING, SERIAL CE. BP CONTROL, IV ABTX. SUPPLEMENTAL O2 (2) UTI (urinary tract infection) Status: Acute Plan: ECOLI + CONTINUE ROCEPHIN (3) Dehydration Status: Acute Plan: LABS, IV HYDRATION, SEPSIS WORK UP (4) Hyperkalemia Status: Acute Plan: MONITOR LABS, IV HYDRATION. 4.2 K+ (5) Hyponatremia Status: Acute Plan: MONITOR LABS, IV HYDRATION, SEPSIS WORK UP
[2018-06-09] MEDS: SNACK - Diabetic Appropriate PO SCH (20:15)
[2018-06-09] MEDS: PERCOCET TAB 5/325 MG PO PRN (21:16)
[2018-06-09] MEDS: REQUIP PO SCH (21:17)
[2018-06-09] MEDS: MIRALAX POWDER (1 DOSE 17 G) PO SCH (21:22)
[2018-06-10] MEDS: DUONEB 0.5 MG/3 MG NEB SCH ×5 (00:06→18:13)
[2018-06-10] MEDS: NORCO 5/325 MG TAB PO PRN ×4 (01:58→20:55)
[2018-06-10] MEDS: ALPHAGAN 0.2% OPHTH SOLN EACHEYE SCH ×3 (05:38→22:59)
[2018-06-10] MEDS: PERCOCET TAB 5/325 MG PO PRN ×3 (05:39→20:23)
[2018-06-10 06:04] LABS: BASOPHILS % (AUTO) 0.7 % (0.2-1.0); EOSINOPHILS # (AUTO) 0.4 x10^3/uL (0.0-0.2); EOSINOPHILS % (AUTO) 6.6 % (0.9-2.9); HEMATOCRIT 27.7 % (36.0-47.0); HEMOGLOBIN 9.1 g/dL (12.0-16.0); LYMPHOCYTES # (AUTO) 1.3 X10^3/uL (1.3-2.9); LYMPHOCYTES % (AUTO) 20.7 % (21.0-51.0); MEAN CORPUSCULAR HEMOGLOBIN 28.4 pg (27.0-34.0); MEAN CORPUSCULAR HGB CONC 32.9 g/dL (33.0-35.0); MEAN CORPUSCULAR VOLUME 86.2 fL (80.0-100.0); MONOCYTES # (AUTO) 0.7 x10^3/uL (0.3-0.8); MONOCYTES % (AUTO) 11.9 % (0.0-13.0); NEUTROPHILS # (AUTO) 3.8 x10^3/uL (2.2-4.8); NEUTROPHILS % (AUTO) 60.1 % (42.0-75.0); PLATELET COUNT 288 X10^3/uL (150.0-450.0); RED BLOOD COUNT 3.21 X10^6/uL (3.5-5.4); RED CELL DISTRIBUTION WIDTH 14.9 % (11.6-16.5); WHITE BLOOD COUNT 6.3 X10^3/uL (3.6-10.0)
[2018-06-10 06:21] LABS: ALBUMIN 2.3 g/dL (3.4-5.0); CARBON DIOXIDE 16.2 mmol/L (21-32); COR CA(FOR HYPOALB) 9.4 mg/dL (8.5-10.1); CREATININE 2.1 mg/dL (0.55-1.02); TOTAL PROTEIN 5.6 g/dL (6.4-8.2)
[2018-06-10] MEDS ORDERED: ALLEGRA ONE (08:12)
[2018-06-10] MEDS: ROCEPHIN VIAL 1 GRAM IVP SCH (08:17)
[2018-06-10] MEDS: PROTONIX INJ 40 MG VIAL IVP SCH (08:17)
[2018-06-10] MEDS: COLACE CAP 100 MG PO SCH ×2 (08:18→22:57)
[2018-06-10] MEDS: ALLEGRA PO SCH (08:18)
[2018-06-10] MEDS: ARTIFICIAL TEARS DROPS AFFEYE SCH ×4 (08:19→21:10)
[2018-06-10] MEDS: ELIQUIS PO SCH ×2 (08:19→20:22)
[2018-06-10] MEDS: PREDNISONE TAB 5 MG PO SCH (08:19)
[2018-06-10] MEDS: MILK OF MAGNESIA PO SCH ×2 (08:20→20:22)
[2018-06-10] MEDS: PATIENT'S HOME MEDICATION PO SCH ×2 (08:22→20:26)
[2018-06-10] MEDS: PULMICORT NEB TX 0.5 MG NEB SCH ×2 (08:24→20:18)
[2018-06-10] MEDS: BROVANA IN SCH ×2 (08:24→20:18)
[2018-06-10] MEDS: ZOFRAN INJ 4 MG VIAL IVP PRN (09:57)
[2018-06-10] MEDS ORDERED: LASIX IVP SCH (13:00)
[2018-06-10 13:14] LABS: ABG BASE EXCESS -10.4 mmol/L (-2.0-2.0)
[2018-06-10 13:16] LABS: ABG ALLEN TEST P; ABG HCO3 14.8 mmol/L (22-26)
[2018-06-10] MEDS: ROBITUSSIN DM PO SCH ×3 (13:21→20:21)
[2018-06-10] MEDS: SOLU-Medrol 40 MG VIAL IVP SCH ×3 (13:21→22:59)
[2018-06-10] MEDS: NS 1000 ML 1,000 ML IV SCH (13:51)
[2018-06-10] MEDS: SYNTHROID 75 mcg TAB PO SCH (16:21)
[2018-06-10] MEDS: REQUIP PO SCH (20:24)
[2018-06-10] MEDS: SNACK - Diabetic Appropriate PO SCH (22:56)
[2018-06-10] MEDS: MIRALAX POWDER (1 DOSE 17 G) PO SCH (22:57)
[2018-06-10] MEDS: NYSTATIN POWDER TOP SCH (22:57)
[2018-06-11] MEDS: DUONEB 0.5 MG/3 MG NEB SCH ×4 (00:14→17:22)
[2018-06-11] MEDS: PERCOCET TAB 5/325 MG PO PRN ×3 (02:36→18:35)
[2018-06-11] MEDS: NS 1000 ML 1,000 ML IV SCH ×2 (04:10→17:28)
[2018-06-11] MEDS: NORCO 5/325 MG TAB PO PRN ×3 (05:11→23:30)
[2018-06-11] MEDS: ALPHAGAN 0.2% OPHTH SOLN EACHEYE SCH ×3 (05:11→21:15)
[2018-06-11 06:05] LABS: BASOPHILS % (AUTO) 0.1 % (0.2-1.0); HEMATOCRIT 30.6 % (36.0-47.0); HEMOGLOBIN 9.9 g/dL (12.0-16.0); LYMPHOCYTES # (AUTO) 0.4 X10^3/uL (1.3-2.9); LYMPHOCYTES % (AUTO) 9.4 % (21.0-51.0); MEAN CORPUSCULAR HEMOGLOBIN 28.4 pg (27.0-34.0); MEAN CORPUSCULAR HGB CONC 32.5 g/dL (33.0-35.0); MEAN CORPUSCULAR VOLUME 87.4 fL (80.0-100.0); MEAN PLATELET VOLUME 7.6 fL (7.4-11.0); MONOCYTES # (AUTO) 0.1 x10^3/uL (0.3-0.8); MONOCYTES % (AUTO) 2.6 % (0.0-13.0); NEUTROPHILS # (AUTO) 3.7 x10^3/uL (2.2-4.8); NEUTROPHILS % (AUTO) 87.9 % (42.0-75.0); PLATELET COUNT 338 X10^3/uL (150.0-450.0); RED BLOOD COUNT 3.51 X10^6/uL (3.5-5.4); RED CELL DISTRIBUTION WIDTH 15.1 % (11.6-16.5); WHITE BLOOD COUNT 4.2 X10^3/uL (3.6-10.0)
[2018-06-11 06:21] LABS: ALBUMIN 2.4 g/dL (3.4-5.0); CALCIUM 8.5 mg/dL (8.5-10.1); CARBON DIOXIDE 16.3 mmol/L (21-32); COR CA(FOR HYPOALB) 9.8 mg/dL (8.5-10.1); CREATININE 2.04 mg/dL (0.55-1.02)
[2018-06-11] MEDS ORDERED: ALLEGRA ONE (08:11)
[2018-06-11] MEDS: PATIENT'S HOME MEDICATION PO SCH ×2 (08:28→20:42)
[2018-06-11] MEDS: ALLEGRA PO SCH (08:29)
[2018-06-11] MEDS: PREDNISONE TAB 5 MG PO SCH (08:30)
[2018-06-11] MEDS: ELIQUIS PO SCH ×2 (08:30→20:40)
[2018-06-11] MEDS: COLACE CAP 100 MG PO SCH ×2 (08:31→20:40)
[2018-06-11] MEDS: ARTIFICIAL TEARS DROPS AFFEYE SCH ×4 (08:31→20:40)
[2018-06-11] MEDS: MILK OF MAGNESIA PO SCH ×2 (08:31→20:41)
[2018-06-11] MEDS: NYSTATIN POWDER TOP SCH ×2 (08:32→20:41)
[2018-06-11] MEDS: ROCEPHIN VIAL 1 GRAM IVP SCH (08:32)
[2018-06-11] MEDS: ROBITUSSIN DM PO SCH ×4 (08:33→20:39)
[2018-06-11] MEDS: PROTONIX INJ 40 MG VIAL IVP SCH (08:33)
[2018-06-11] MEDS: PULMICORT NEB TX 0.5 MG NEB SCH ×2 (09:14→20:19)
[2018-06-11] MEDS: BROVANA IN SCH ×2 (09:14→20:19)
[2018-06-11] MEDS ORDERED: LASIX IVP ONE (12:00)
[2018-06-11] MEDS: SYNTHROID 75 mcg TAB PO SCH (17:28)
[2018-06-11] MEDS ORDERED: CONSULT PHARMACY - ANTIBIOTIC XX SCH (19:00)
[2018-06-11] MEDS: SNACK - Diabetic Appropriate PO SCH (20:39)
[2018-06-11] MEDS: MIRALAX POWDER (1 DOSE 17 G) PO SCH (20:41)
[2018-06-11] MEDS: REQUIP PO SCH (20:42)
[2018-06-11] MEDS: NS IV SCH (21:14)
[2018-06-11] MEDS: TEFLARO IV SCH (21:14)
[2018-06-11] MEDS: ZOFRAN INJ 4 MG VIAL IVP PRN (22:52)
[2018-06-12] MEDS: DUONEB 0.5 MG/3 MG NEB SCH ×4 (00:20→17:12)
[2018-06-12 05:27] LABS: BASOPHILS % (AUTO) 0.5 % (0.2-1.0); EOSINOPHILS # (AUTO) 0.4 x10^3/uL (0.0-0.2); EOSINOPHILS % (AUTO) 4.2 % (0.9-2.9); HEMATOCRIT 27.6 % (36.0-47.0); LYMPHOCYTES # (AUTO) 1.4 X10^3/uL (1.3-2.9); LYMPHOCYTES % (AUTO) 14.4 % (21.0-51.0); MEAN CORPUSCULAR HEMOGLOBIN 28.5 pg (27.0-34.0); MEAN CORPUSCULAR HGB CONC 32.7 g/dL (33.0-35.0); MEAN CORPUSCULAR VOLUME 87.2 fL (80.0-100.0); MEAN PLATELET VOLUME 7.4 fL (7.4-11.0); MONOCYTES # (AUTO) 0.7 x10^3/uL (0.3-0.8); MONOCYTES % (AUTO) 7.3 % (0.0-13.0); NEUTROPHILS % (AUTO) 73.6 % (42.0-75.0); PLATELET COUNT 314 X10^3/uL (150.0-450.0); RED BLOOD COUNT 3.16 X10^6/uL (3.5-5.4); RED CELL DISTRIBUTION WIDTH 15.2 % (11.6-16.5); WHITE BLOOD COUNT 9.5 X10^3/uL (3.6-10.0)
[2018-06-12 05:37] LABS: ALANINE AMINOTRANSFERASE 19 Units/L (12-78); ALBUMIN 2.3 g/dL (3.4-5.0); ALKALINE PHOSPHATASE 83 Units/L (46-116); ASPARTATE AMINO TRANSFERASE 11 Units/L (15-37); BLOOD UREA NITROGEN 59 mg/dL (7-18); CALCIUM 8.8 mg/dL (8.5-10.1); CARBON DIOXIDE 16.6 mmol/L (21-32); CHLORIDE 108 mmol/L (98-107); COR CA(FOR HYPOALB) 10.2 mg/dL (8.5-10.1); CREATININE 1.73 mg/dL (0.55-1.02); SODIUM 138 mmol/L (136-145); TOTAL PROTEIN 5.5 g/dL (6.4-8.2); eGFR NON BLACK RACES 30 (>60)
--- NOTE | 2018-06-12 05:45 | RAD ---
Chest, one view Indication: Congestion Comparison: 06/09/2018 Findings: There is stable enlargement of the cardiac silhouette without congestive failure. There are stable chronic interstitial lung changes. No acute infiltrate or significant effusion is identified. No pneumothorax. Impression: No acute chest process or significant interval change. Reported By:
[2018-06-12] MEDS: ALPHAGAN 0.2% OPHTH SOLN EACHEYE SCH ×3 (05:46→21:29)
[2018-06-12] MEDS: PERCOCET TAB 5/325 MG PO PRN ×2 (05:47→20:31)
[2018-06-12] MEDS: NS 1000 ML 1,000 ML IV SCH ×2 (07:59→20:33)
[2018-06-12] MEDS: COLACE CAP 100 MG PO SCH ×2 (08:01→20:31)
[2018-06-12] MEDS: MILK OF MAGNESIA PO SCH ×2 (08:01→20:32)
[2018-06-12] MEDS ORDERED: ALLEGRA ONE (08:39)
[2018-06-12] MEDS: PULMICORT NEB TX 0.5 MG NEB SCH (08:55)
[2018-06-12] MEDS: BROVANA IN SCH (08:55)
[2018-06-12] MEDS: PROVENTIL NEB TX 0.083% 2.5MG/ 3ML NEB PRN (08:55)
[2018-06-12] MEDS: ALLEGRA PO SCH (09:10)
[2018-06-12] MEDS: ROCEPHIN VIAL 1 GRAM IVP SCH (09:11)
[2018-06-12] MEDS: ELIQUIS PO SCH ×2 (09:11→20:32)
[2018-06-12] MEDS: ARTIFICIAL TEARS DROPS AFFEYE SCH ×4 (09:11→20:30)
[2018-06-12] MEDS: PATIENT'S HOME MEDICATION PO SCH ×2 (09:11→20:34)
[2018-06-12] MEDS: PREDNISONE TAB 5 MG PO SCH (09:11)
[2018-06-12] MEDS: ROBITUSSIN DM PO SCH ×4 (09:11→20:31)
[2018-06-12] MEDS: PROTONIX INJ 40 MG VIAL IVP SCH (09:11)
[2018-06-12] MEDS: NS IV SCH ×2 (09:12→20:33)
[2018-06-12] MEDS: NYSTATIN POWDER TOP SCH ×2 (09:12→20:33)
[2018-06-12] MEDS: TEFLARO IV SCH ×2 (09:12→20:33)
[2018-06-12] MEDS: NYSTATIN CREAM TOP SCH ×2 (16:00→20:34)
[2018-06-12] MEDS: SYNTHROID 75 mcg TAB PO SCH (16:30)
[2018-06-12] MEDS: SNACK - Diabetic Appropriate PO SCH (20:30)
[2018-06-12] MEDS: REQUIP PO SCH (20:31)
[2018-06-12] MEDS: MIRALAX POWDER (1 DOSE 17 G) PO SCH (20:33)
[2018-06-13] MEDS: PULMICORT NEB TX 0.5 MG NEB SCH ×2 (00:12→09:16)
[2018-06-13] MEDS: BROVANA IN SCH ×2 (00:12→09:16)
[2018-06-13] MEDS: DUONEB 0.5 MG/3 MG NEB SCH ×4 (00:12→17:54)
[2018-06-13] MEDS: ZOFRAN INJ 4 MG VIAL IVP PRN (00:45)
[2018-06-13] MEDS: NORCO 5/325 MG TAB PO PRN (00:49)
[2018-06-13] MEDS: ALPHAGAN 0.2% OPHTH SOLN EACHEYE SCH ×2 (05:31→14:20)
[2018-06-13 06:19] LABS: BASOPHILS % (AUTO) 0.4 % (0.2-1.0); EOSINOPHILS # (AUTO) 0.6 x10^3/uL (0.0-0.2); EOSINOPHILS % (AUTO) 6.8 % (0.9-2.9); HEMATOCRIT 26.4 % (36.0-47.0); HEMOGLOBIN 8.7 g/dL (12.0-16.0); LYMPHOCYTES # (AUTO) 1.5 X10^3/uL (1.3-2.9); LYMPHOCYTES % (AUTO) 18.1 % (21.0-51.0); MEAN CORPUSCULAR HEMOGLOBIN 28.2 pg (27.0-34.0); MEAN CORPUSCULAR HGB CONC 32.9 g/dL (33.0-35.0); MEAN CORPUSCULAR VOLUME 85.8 fL (80.0-100.0); MEAN PLATELET VOLUME 7.4 fL (7.4-11.0); MONOCYTES # (AUTO) 0.7 x10^3/uL (0.3-0.8); NEUTROPHILS # (AUTO) 5.4 x10^3/uL (2.2-4.8); NEUTROPHILS % (AUTO) 65.7 % (42.0-75.0); PLATELET COUNT 295 X10^3/uL (150.0-450.0); RED BLOOD COUNT 3.07 X10^6/uL (3.5-5.4); RED CELL DISTRIBUTION WIDTH 14.9 % (11.6-16.5); WHITE BLOOD COUNT 8.3 X10^3/uL (3.6-10.0)
[2018-06-13 06:38] LABS: ALANINE AMINOTRANSFERASE 15 Units/L (12-78); ALBUMIN 2.1 g/dL (3.4-5.0); ALKALINE PHOSPHATASE 74 Units/L (46-116); ASPARTATE AMINO TRANSFERASE 12 Units/L (15-37); BLOOD UREA NITROGEN 45 mg/dL (7-18); CALCIUM 8.5 mg/dL (8.5-10.1); CARBON DIOXIDE 18.4 mmol/L (21-32); CHLORIDE 112 mmol/L (98-107); CREATININE 1.55 mg/dL (0.55-1.02); SODIUM 141 mmol/L (136-145); TOTAL PROTEIN 5.1 g/dL (6.4-8.2); eGFR NON BLACK RACES 34 (>60)
[2018-06-13] MEDS ORDERED: ALLEGRA ONE (09:12)
[2018-06-13] MEDS: PROVENTIL NEB TX 0.083% 2.5MG/ 3ML NEB PRN (09:16)
[2018-06-13] MEDS: NYSTATIN CREAM TOP SCH (09:49)
[2018-06-13] MEDS: NYSTATIN POWDER TOP SCH (09:49)
[2018-06-13] MEDS: ALLEGRA PO SCH (09:49)
[2018-06-13] MEDS: COLACE CAP 100 MG PO SCH (09:49)
[2018-06-13] MEDS: PATIENT'S HOME MEDICATION PO SCH (09:49)
[2018-06-13] MEDS: MILK OF MAGNESIA PO SCH (09:49)
[2018-06-13] MEDS: ELIQUIS PO SCH (09:50)
[2018-06-13] MEDS: PREDNISONE TAB 5 MG PO SCH (09:50)
[2018-06-13] MEDS: TEFLARO IV SCH (09:50)
[2018-06-13] MEDS: PROTONIX INJ 40 MG VIAL IVP SCH (09:50)
[2018-06-13] MEDS: NS IV SCH (09:50)
[2018-06-13] MEDS: ROBITUSSIN DM PO SCH ×3 (09:50→16:21)
[2018-06-13] MEDS: ROCEPHIN VIAL 1 GRAM IVP SCH (09:51)
[2018-06-13] MEDS: ARTIFICIAL TEARS DROPS AFFEYE SCH ×3 (09:51→16:21)
[2018-06-13 16:16] VITALS: BP 152/85
[2018-06-13] MEDS: NS 1000 ML 1,000 ML IV SCH (16:20)
[2018-06-13] MEDS: SYNTHROID 75 mcg TAB PO SCH (16:21)
[2018-06-13 16:27] LABS: STOOL FOR WBC POSITIVE (NEGATIVE)
[2018-06-13 16:44] LABS: CRYPTOSPORIDIUM PARVUM ANTIGEN NEGATIVE (NEGATIVE); GIARDIA LAMBLIA ANTIGEN NEGATIVE (NEGATIVE)
== END 2018-06-13 18:25 | DRG 683 ==
LOC: ICU 16:26
PROVIDERS: ADMIT Internal Medicine; ATTEND Internal Medicine
DX: J20.9 Acute bronchitis, unspecified; R26.81 Unsteadiness on feet; E87.5 Hyperkalemia; B96.20 Unspecified Escherichia coli [E. coli] as the cause of diseases classified elsewhere; E03.9 Hypothyroidism, unspecified; A49.02 Methicillin resistant Staphylococcus aureus infection, unspecified site; N17.9 Acute kidney failure, unspecified; E87.1 Hypo-osmolality and hyponatremia; E86.0 Dehydration; N39.0 Urinary tract infection, site not specified; I95.9 Hypotension, unspecified; K21.9 Gastro-esophageal reflux disease without esophagitis
CPT/HCPCS: 36415; 36600; 71010; 71045; 76770; 80048; 80053; 81001; 82009; 82270; 82550; 82553; 82803; 83605; 83630; 84484; 85025; 87040; 87045; 87070; 87077; 87086; 87088; 87186; 87205; 87328; 87329; 87427; 87449; 87493; 87899; 93005; 94640; 97110; 97162; 97167; 97530; 99231; A4216; A4222; C9113; J0696; J0712; J1815; J1940; J2405; J2920; J3260; J3490; J7030; J7050; J7512; J7613; J7620; J7626